=== PATIENT | female | born 1955 ===

== ENCOUNTER 2025-05-18 14:07 | Outpatient (AMB) | payer OTHER, SELFPAY ==
--- NOTE | 2025-05-18 14:09 | A.PHYSOV_ITS ---
Vital Signs 05/18/25 14:17 Height 5 ft 1 in Weight 134 lb BMI 25.3 Intake Visit Reasons: F/U after injection 03/16/2025 Intake Note: Patient is a 69 year old female here for follow up to 03/16/25 C7-T1 MICHAEL. [employer]ician Required: No Allergies No Known Allergies Allergy (Verified 05/18/25 14:18) HPI Comments Details: History of Present Illness The patient is a 69-year-old individual presenting for management of chronic pain. The patient reports significant right shoulder pain secondary to known arthritis, which is exacerbated by sleeping on that side and is painful enough to cause the patient to cry. A previous shoulder injection in November provided good relief, but the effects have worn off. The patient also reports pain from the neck upwards into both arms, with a sensation of hair being pulled at the bottom hairline. She underwent C7-T1 MICHAEL without any additional relief. Patient reports most of her pain radiates from her left shoulder into the upper extremities. She has known osteoarthritis. Patient is requesting repeat injection of the left shoulder. Pain Description - Location: The patient reports pain in the neck and shoulder area. - Radiation: The pain extends from the neck region up into both arms. - Character: The patient describes a sensation of hair being pulled at the bottom hairline. - Severity: The pain is described as severe enough to make the patient feel like crying. - Exacerbating factors: The pain worsens when sleeping on the affected side or placing the arm in certain positions. - Relieving factors: A previous injection into the shoulder provided relief. Procedure: Left glenohumeral injection 11/19/2024 C7-T1 MICHAEL 02/24/2025 no relief Left glenohumeral injection 05/18/2025 [facility] Surgical History H/O tubal ligation History of neck surgery History of cholecystectomy History of carpal tunnel surgery Previous section Social History Alcohol intake: current Alcohol intake frequency: holidays/special occasions only Patient Tobacco Use Status: Never used Tobacco Use of substances other than those prescribed or required for medical reasons: No Review of Systems Narrative Review of Systems - Musculoskeletal: Reports right shoulder pain that worsens with sleeping on that side and is associated with a grinding sensation and limited range of motion. - Reports pain radiating from the neck up into both arms. - The left shoulder is reported as being better. - Reports generalized pain all over. - Neurological: Reports a pulling sensation along the bottom hairline. Physical Exam Exam Exam: Physical Exam Cervical Spine: Examination of her cervical spine, there is no visible swelling or deformity. She is tender to bilateral upper trapezius. She has limited range of motion of her cervical spine at end range throughout. Special Tests: Axial Compression test: Negative Spurlings test: Negative Lhermitte's sign is Negative Upper Extremities: She is tender to the lateral deltoid of her left shoulder. She has 110 degrees of forward flexion and abduction with pain. She does have an increase in pain with impingement testing. Full range of motion of her elbow wrist and hand. Neuro: Sensation: Intact to upper extremities bilateral to light touch Strength C5 (Elbow Flexion): 5/5 on the left and 5/5 on the right. C6 (Elbow Ext): 5/5 on the left and 5/5 on the right. C7 (Elbow Ext): 5/5 on the left and 5/5 on the right. C8 (Finger Flex): 5/5 on the left and 5/5 on the right. T1 (Finger Abd/Add): 5/5 on the left and 5/5 on the right. DTR: C5 (Biceps): Left 2 Right 2 C6 (Brachioradialis): Left 2 Right 2 C7 (Triceps): Left 2 Right 2 Delvalle sign: Negative No pathologic clonus. No involuntary movement. Vital Signs: BMI result Body Mass Index 25.3 Office Procedures AMB Shoulder Injection AMB Shoulder Injection Procedure Details: Left Glenohumeral joint injection: The patient was educated about risks, complications and benefits including but not limited to increased serum glucose, infection, nerve damage, bleeding, tendon/ligament damage and pain. We agree with a glenohumeral injection is the next best step in the treatment plan. Verbal consent was obtained. Using aseptic technique, the skin was cleansed with Betadine. Ethyl chloride was used to desensitize the skin. Using a posterior approach, 40 mg of Kenalog and 3 mL 2% lidocaine were injected using a 25-gauge inch and a half needle into the joint. The patient tolerated the procedure well without immediate complication. Postinjection instructions were given. Shoulder Injection - : Left All charges added?: Procedure code (CPT) selection complete Office Meds Kenalog 40 mg/mL suspension for injection Performing Provider: MARIAM Fitzgerald Performing Location: [facility] Administered by: MARIAM Fitzgerald on 05/18/25 15:37 Dose Route Admin Location Dispensed Lot Number Expiration Date [facility] [employer] 40 mg intra-articular 1 mL [id number] [employer] Total Dispensed Waste 1 mL 0 % lidocaine (PF) 20 mg/mL (2 %) injection solution Performing Provider: MARIAM Fitzgerald Performing Location: [facility] Administered by: MARIAM Fitzgerald on 05/18/25 15:37 Dose Route Admin Location Dispensed Lot Number Expiration Date [facility] [employer] 60 mg intra-articular 50 mL [id number] Total Dispensed Waste 50 mL 0 % Assessment & Plan Assessment & Plan (1) Cervical radiculopathy: Code(s): M54.12 - Radiculopathy, cervical region Category: Medical (2) Cervicalgia: Code(s): M54.2 - Cervicalgia Category: Medical (3) Osteoarthritis, shoulder: Code(s): M19.019 - Primary osteoarthritis, unspecified shoulder Category: Medical Qualifiers: Osteoarthritis type: primary Laterality: left Qualified Code(s): M19.012 - Primary osteoarthritis, left shoulder Plan Pain Management - Affect: The patient's pain is severe enough to cause crying and makes the patient feel like an old car. - Analgesia: A previous injection in the neck was ineffective. - A prior shoulder injection administered in November was effective for approximately three months but has worn off. - Activities of Daily Living: The pain interferes with sleep, particularly when lying on the affected side, and limits the ability to lift the arm. Plan Patient was informed and verbally consented to the use of an ambient scribe for clinic note documentation during this visit. 1. Shoulder Arthritis The patient has a history of shoulder arthritis, and a previous injection in November provided significant but temporary relief. Since that injection has worn off and was more effective than the recent neck injection, the plan is to repeat the shoulder injection today to manage the severe pain. It has been explained that this is a temporary measure to make the pain more manageable, not a permanent solution. Consent for the procedure was obtained. She may benefit from x-ray of the left shoulder which I do not see in her chart. 2. Neck Pain A recent neck injection was ineffective in relieving the patient's pain. Given the superior efficacy of the shoulder injection, further neck injections will be deferred at this time. She could benefit from transforaminal injection but she will receive much more relief from her glenohumeral injection. She will continue her home exercise plan and medications as prescribed. Follow-up with our office as needed. Orders: Orders AMB Shoulder Injection Today M19.012 - Primary osteoarthritis, left shoulder Coding Level of Care Code Tele Est Pt Level 3 (38621) Diagnoses Cervical radiculopathy M54.12 Cervicalgia M54.2 Primary osteoarthritis of left shoulder M19.012 Osteoarthritis type: primary Laterality: left CPT Codes AMB Shoulder Injection - Hip/Bursa Injection - : Left ([id number])
[2025-05-18 14:17] VITALS: BMI 25.3
== END 2025-05-18 14:42 | disposition home or self-care (01) ==
LOC: HO.HPHYS 14:07
PROVIDERS: PCP Internal Medicine; Visit Provider Physician Assistant
DX: M54.12 Radiculopathy, cervical region (principal); M54.2 Cervicalgia; M19.012 Primary osteoarthritis, left shoulder
CPT/HCPCS: 20610; 99213

== ENCOUNTER → 2025-05-18 14:07 | Outpatient (BNVA) | payer OTHER, SELFPAY | PROVIDERS: PCP Internal Medicine; Visit Provider Physician Assistant | DX: M19.012 Primary osteoarthritis, left shoulder (principal); M54.12 Radiculopathy, cervical region | CPT/HCPCS: 20610; 99212; J2003; J3301 ==